=== PATIENT | male | born 1995 | race Two or more races ===

== ENCOUNTER 2025-08-26 17:40 | Emergency (ER) | payer OTHER ==
[~2025-08-26] VITALS: Ht 175.3 cm; Wt 65.0 kg
[2025-08-26 17:42] VITALS: BP 138/71; PULSE 99; RESP 16; TEMP 98.2; O2SAT 98
--- NOTE | 2025-08-26 18:40 | ED.PDOC ---
Eye-HPI HPI Comments Kem Masters is a 29 year old male, with no relevant past medical history. The patient came to the ED with the chief complaint of 1 week of left lower molar pain, 7/10, associated with swelling of the gums. The pain worsen today to 9/10, this prompted his visit to the ED. The patient denies fever, chills, bleeding or other symptoms. In the ED: BP: 138/71mmH, HR: 99bpm. Chief Complaint: Tooth Pain Time Seen by MD: 18:07 Reviewed Notes: Nurses Notes, Medications, Allergies Allergies: Coded Allergies: No Known Drug Allergy (Verified Allergy, Unknown, 08/26/25) Information Source: Patient Mode of Arrival: Ambulatory Timing: Weeks Duration: Since onset Mouth Location: Tooth/Teeth, Gums Past Medical History PAST MEDICAL HISTORY: Denies Surgical History: Denies all surgeries Family History Family History: Reviewed,noncontributory to illness Social History Smoker: Other (Nicotine vape) Alcohol: Occasionally Drugs: Marijuana Lives In: Home Constitutional: denies: chills, diaphoresis, fatigue, fever, malaise, sweats, weakness, others EENTM: reports: others (Tooth pain); denies: blurred vision, double vision, ear bleeding, ear discharge, ear drainage, ear pain, ear ringing, eye pain, eye redness, hearing loss, mouth pain, mouth swelling, nasal discharge, nose bleeding, nose congestion, nose pain, photophobia, tearing, throat pain, throat swelling, voice changes Respiratory: denies: cough, hemoptysis, orthopnea, SOB at rest, shortness of breath, SOB with excertion, stridor, wheezing, others Cardiovascular: denies: chest pain, dizzy spells, diaphoresis, Dyspnea on exertion, edema, irregular heart beat, left arm pain, lightheadedness, palpitations, PND, syncope, others Gastrointestinal: denies: abdomen distended, abdominal pain, blood streaked bowels, constipated, diarrhea, dysphagia, difficulty swallowing, hematemesis, melena, nausea, poor appetite, poor fluid intake, rectal bleeding, rectal pain, vomiting, others Genitourinary: denies: burning, dysuria, flank pain, frequency, hematuria, incontinence, penile discharge, penile sore, pain, testicle pain, testicle swelling, urgency, others Neurological: denies: dizziness, fainting, headache, left sided numbness, left sided weakness, numbness, paresthesia, pre-existing deficit, right sided numbness, right sided weakness, seizure, speech problems, tingling, tremors, weakness, others Musculoskeletal: denies: back pain, gout, joint pain, joint swelling, muscle pain, muscle stiffness, neck pain, others Integumetry: denies: bruises, change in color, change in hair/nails, dryness, laceration, lesions, lumps, rash, wounds, others Allergic/Immunocompromised: denies: Difficulty Healing, Frequent Infections, Hives, Itching, others Hematologic/Lymphatic: denies: anemia, blood clots, easy bleeding, easy bruising, swollen glands, others Endocrine: denies: excessive hunger, excessive sweating, excessive thirst, excessive urination, flushing, intolerance to cold, intolerance to heat, une xplained weight gain, unexplained weight loss, others Psychiatric: denies: anxiety, bipolar disorder, depression, hopeless, panic disorder, schizophrenia, sleepless, suicidal, others Physical Exam Exam Comments Alert, oriented x3. General Appearance: No Apparent Distress, Normal HEENT: Pharynx Normal, TMs Normal, Other (Mouth: to inspection: there is several molar missing. Left lower molar is missing, the gums are swelling. Palpation: there is tenderness to palpation over the missing tooh gum. ) Neck: Full Range of Motion, Non-Tender, Normal, Normal Inspection Respiratory: Chest Non-Tender, Lungs Clear, No Accessory Muscle Use, No Respiratory Distress, Normal Breath Sounds Cardiovascular: No Edema, No JVD, No Murmur, No Gallop, Normal Peripheral Pulses, Regular Rate/Rhythm Breast Exam: Deferred Gastrointestinal: No Organomegaly, Non Tender, No Pulsatile Mass, Normal Bowel Sounds, Soft Genitalia: Deferred Pelvic: Deferred Rectal: Deferred Extremities: No calf tenderness, Normal capillary refill, Normal inspection, Normal range of motion, Non-tender, No pedal edema Musculoskeletal : Apperance: Normal Neurologic: Alert, rougher helper II-XII nml as Tested, No Motor Deficits, Normal Affect, Normal Mood, No Sensory Deficits Cerebellar Function: Normal Reflexes: Normal Skin: Dry, Normal Color, Warm Lymphatic: No Adenopathy Was a procedure done? Was a procedure done?: No EENT DIFF Eye: N/A Ear: N/A Nose: N/A Mouth: N/A Sore Throat: N/A Other Differential Diagnosis #Molar abscess. X-Ray, Labs, Meds, VS Vital Signs Date Time Temp Pulse Resp B/P (MAP) Pulse Ox O2 Delivery O2 Flow Rate FiO2 08/26/25 17:42 98.2 99 16 138/71 98 98.2 Time of 1ST Reevaluation: 18:40 Reevaluation 1ST: Unchanged Patient Education/Counseling: Diagnosis, Treatment, Prognosis, Need For Follow Up Family Education/Counseling: No Family Present SEPSIS Sepsis Screen Date sepsis recognized/suspect: Aug 26, 2025 Time Sepsis recognized/suspect: 1741 Recent Procedure: No On Antibiotic Therapy: No Respiratory Rate >20: No Heart Rate >90: Yes Temp<36 C (96.8 F) or >38.3 C: No SBP <90 or MAP <65 mmHG: No New Acute Mental Status Change: No Is the patient on CPAP, BIPAP,: No Vital Signs Date Time Temp Pulse Resp B/P (MAP) Pulse Ox O2 Delivery O2 Flow Rate FiO2 08/26/25 17:42 98.2 99 16 138/71 98 98.2 Departure 1 Departure Time of Disposition: 18:40 Impression: Primary Impression: Tooth ache Additional Impressions: Tooth abscess Tooth caries Disposition: 01 HOME / SELF CARE / HOMELESS Condition: Good Additional Instructions: Please read all instructions provided in this packet carefully. You MUST follow-up with your primary care/family doctor in 1 to 2 days. If you are unable to see your primary care/family doctor, please return to our emergency room for re-assessment and re-evaluation in 1 to 2 days. Return to the emergency room here in our facility or to the nearest ER [facility] if your symptoms change or worsen. CONSULTATIONS: you MUST Follow-up for consultation as soon as possible with: -your Dentist in 1-2 days. You MUST call the consultants office yourself to make an appointment. You may need to arrange that through your insurance and/or your primary/family doctor. If you are unable to see the healthcare network pricing consultant in 1 to 2 days, you must return to our emergency room (or any other ER of your choice) for re-assessment and re- evaluation. Adequate fluid hydration. Although you have been discharged from the Emergency Department, this does not mean that you have a "clean bill of health". No definitive diagnosis for your symptoms has been made today. It is possible that you are in the process of developing a serious illness. This is why you must return to the ED without fail if any new or worsening symptoms develop. Written Prescriptions Augmenting 875mg/125mg po bid x 5 days Motrin 400mg po prn for pain (over the counter) Discharged With: Self Comments Goals of care discussed with the patient > 35 min. Discussed plan of care with Dr. Dempsey Code status: Full code PCP: Does not recall name Plan discussed with: The patient. the patient agrees with the plan. Critical Care Note Critical Care Time?: No Stability Stability form required: No Heart Score Heart Score: Heart Score Response (Comments) Value History N/A 0 EKG N/A 0 Age N/A 0 Risk Factors N/A 0 Troponin N/A 0 Total 0 MALLY CHRISTIANSEN RESIDENT Aug 26, 2025 18:40
[2025-08-26] MEDS ORDERED: AUG875T PO (19:22)
== END 2025-08-26 19:16 | disposition home or self-care (01) ==
LOC: ER 17:40
DX: K04.7 Periapical abscess without sinus (principal); K02.9 Dental caries, unspecified; F17.290 Nicotine dependence, other tobacco product, uncomplicated; F12.90 Cannabis use, unspecified, uncomplicated

== ENCOUNTER 2025-09-24 02:05 | Emergency (ER) | payer SELFPAY ==
[~2025-09-24] VITALS: Ht 175.3 cm; Wt 72.0 kg
[~2025-09-24 02:05] MED LIST: AUG875T PO
[2025-09-24 02:07] VITALS: BP 138/78; PULSE 65; RESP 18; TEMP 97.3; O2SAT 95
== END 2025-09-24 02:56 | disposition left against medical advice (07) ==
LOC: ER 02:05
DX: Z20.2 Contact with and (suspected) exposure to infections with a predominantly sexual mode of transmission (principal); Z79.899 Other long term (current) drug therapy